=== PATIENT | male | born 1970 ===

== ENCOUNTER 2024-08-01 03:29 | Emergency (ER) | payer MEDICAID ==
[~2024-08-01] VITALS: Ht 165.1 cm; Wt 75.0 kg
[2024-08-01 04:34] LABS: BASOPHILS # (AUTO) 0.1 X10'3 (0-0.2); BASOPHILS % (AUTO) 1.3 % (0-1); EOSINOPHILS # (AUTO) 0.1 X10'3 (0-0.9); HEMATOCRIT 40.7 % (42.0-52.0); HEMOGLOBIN 13.9 g/dl (14.0-17.9); LYMPHOCYTES # (AUTO) 2.1 X10'3 (1.1-4.8); LYMPHOCYTES % (AUTO) 31.6 % (21-51); MEAN CORPUSCULAR HEMOGLOBIN 31.6 PG (27.0-31.0); MEAN CORPUSCULAR HGB CONC 34.2 g/dL (33.0-36.5); MEAN CORPUSCULAR VOLUME 92.4 FL (78-98); MEAN PLATELET VOLUME 8.1 FL (7.4-10.4); MONOCYTES # (AUTO) 0.5 X10'3 (0-0.9); MONOCYTES % (AUTO) 7.6 % (2-12); NEUTROPHILS # (AUTO) 3.9 X10'3 (1.8-7.7); NEUTROPHILS % (AUTO) 57.5 % (42-75); PLATELET COUNT 244 X10'3 (140-440); RED CELL DISTRIBUTION WIDTH 13.7 % (11.5-14.5); WHITE BLOOD COUNT 6.7 X10'3 (4.5-11.0)
[2024-08-01 04:57] LABS: ALBUMIN 4.4 G/DL (3.4-5.0); ANION GAP 20 (8-16); BLOOD UREA NITROGEN 17 MG/DL (7-18); BUN/CREATININE RATIO 13.6 (10.0-20.0); CHLORIDE 100 MMOL/L (99-107); CREATININE 1.25 MG/DL (0.60-1.10); GLUCOSE 77 MG/DL (70-104); POTASSIUM 3.1 MMOL/L (3.5-5.1); PRO BRAIN NATRIURETIC PEPTIDE 114 PG/ML (0-125); SODIUM 140 MMOL/L (135-145); TOTAL CARBON DIOXIDE 20.2 MMOL/L (24-32); eCRCL 59 ML/MIN; eGFR 60 ML/MIN
[2024-08-01] MEDS: ipratropium/albuterol 3ml nebule NEB ONE ×2 (05:29→07:53)
[2024-08-01 05:37] VITALS: PULSE 92; RESP 22; O2SAT 100
[2024-08-01 05:44] VITALS: PULSE 78; RESP 17
[2024-08-01] MEDS: potassium Cl 20 mEq SR tablet PO STA (05:55)
[2024-08-01] MEDS: normal saline 1000ml 1,000 ML IV ONE (06:01)
[2024-08-01] MEDS: ondansetron 4mg rapidly disintigrating tab PO ONE (06:01)
[2024-08-01] MEDS: potassium Cl 40MEQ/1/2NS 520ml 520 ML IV ONE (06:12)
[2024-08-01] MEDS ORDERED: methylPREDNISolone sod succ/PF 40mg inj. IV SCH (07:45)
[2024-08-01] MEDS: albuterol 2.5 MG/3 ML nebule NEB ONE (07:53)
[2024-08-01 07:54] VITALS: PULSE 66; PULSE 68; RESP 20; O2SAT 66; O2SAT 96; O2SAT 99
[2024-08-01] MEDS: methylPREDNISolone sod succ 125mg/2ml vial IV ONE (08:33)
[2024-08-01 10:05] VITALS: BP 150/110; PULSE 76; RESP 17; TEMP 98.3; O2SAT 100
== END 2024-08-01 10:05 | disposition home or self-care (01) ==
LOC: ER 03:30 → EDBD 03:30 → ER 10:05
DX: J95.03 Malfunction of tracheostomy stoma (principal); I48.91 Unspecified atrial fibrillation; Z88.0 Allergy status to penicillin; Z20.822 Contact with and (suspected) exposure to COVID-19
CPT/HCPCS: 36415; 71045; 80048; 83880; 84145; 84484; 85025; 87502; 87503; 87811; 93005; 94640; 96365; 96366; 96375; 99285; J2919; J3480; J7030; 96361; 96374